=== PATIENT | male | born 1990 | race Hispanic/Latino ===

== ENCOUNTER 2022-11-14 14:10 | Emergency (ER) | payer BC, SELFPAY ==
[2022-11-14] MEDS ORDERED: Ibuprofen 200 MG TAB ONE (15:18)
[2022-11-14] MEDS ORDERED: Acetaminophen 500 MG TAB ONE (15:18)
== END 2022-11-14 16:12 | disposition home or self-care (01) ==
LOC: CSHERS 14:10
DX: S60.021A Contusion of right index finger without damage to nail, initial encounter (principal); W23.1XXA Caught, crushed, jammed, or pinched between stationary objects, initial encounter